=== PATIENT | male | born 1985 | race Hispanic/Latino ===

== ENCOUNTER 2020-03-21 15:20 | Inpatient (IN) | payer SELFPAY ==
[~2020-03-21 15:20] MED LIST: Dexamethasone 20 MG/5 ML VIAL ONE; Glycopyrrolate 0.2 MG/ML 5 ML SYRINGE ONE; Lidocaine 1% PF 5 ML VIAL ONE; Ondansetron PF 4 MG/2 ML Vial ONE; PHENYLEPHRINE-NS 100 MCG/ML 10 ML SYRINGE ONE; PROPOFOL 200 MG/20 ML VIAL ONE; Rocuronium Bromide 10 MG/ML (10ML VIAL) ONE; Vecuronium 10 MG VIAL ONE
--- NOTE | 2020-03-21 16:05 | RAD ---
Exam:3 views right hand HISTORY: Laceration to the fingers. Evaluate for foreign body. COMPARISON: None FINDINGS: Overlying bandage material limits evaluation of the third through fifth digit. No radiopaqu e foreign body. No fracture, cortical irregularity or periosteal reaction. Preserved joint spaces. IMPRESSION: 1. No fracture. 2. No radiopaque foreign body. Overlying bandage material limits interpretation.
[2020-03-21] MEDS ORDERED: Boostrix 0.5 ML (Tdap) VIAL ONE (16:55)
[2020-03-21] MEDS ORDERED: Morphine 4 MG/ML VIAL ONE ×2 (17:01→19:29)
[2020-03-21] MEDS ORDERED: Ondansetron PF 4 MG/2 ML Vial ONE (17:09)
[2020-03-21] MEDS ORDERED: CEFAZOLIN 1 GM VIAL ONE (17:09)
[2020-03-21] MEDS ORDERED: Gentamicin 80 MG/2 ML VIAL ONE (19:13)
[2020-03-21] MEDS ORDERED: Milk Of Magnesia 30 ML UDCUP PO PRN (19:34)
[2020-03-21] MEDS ORDERED: Ondansetron PF 4 MG/2 ML Vial IVP PRN (19:34)
[2020-03-21] MEDS ORDERED: Acetaminophen 325 MG TAB PO PRN (19:34)
[2020-03-21] MEDS ORDERED: Promethazine HCl 25 MG/ML VIAL IM PRN ×2 (19:34→23:23)
[2020-03-21] MEDS ORDERED: Morphine 4 MG/ML VIAL SLOW IVP PRN (19:34)
[2020-03-21] MEDS ORDERED: traMADol HCl 50 MG TAB PO PRN (19:34)
[2020-03-21] MEDS ORDERED: Bisacodyl 10 MG SUPP PR PRN (19:34)
[2020-03-21] MEDS ORDERED: Meperidine HCl/PF 25 MG/ML VIAL IM PRN (19:37)
[2020-03-21] MEDS ORDERED: TETANUS AND DIPHTHERIA TOX/PF 0.5 ML DISP.SYRIN IM SCH (19:45)
[2020-03-21] MEDS ORDERED: Communication Order-Pharmacy FS SCH (19:45)
[2020-03-21] MEDS ORDERED: Lidocaine 2% Jelly 5 ML TUBE ONE (20:24)
[2020-03-21] MEDS ORDERED: Fentanyl 100 MCG/2 ML VIAL ONE (20:24)
[2020-03-21] MEDS ORDERED: Midazolam HCl 2 mg/2 ml Vial ONE (20:24)
[2020-03-21] MEDS ORDERED: Lidocaine 2% PF 5 ML VIAL ONE (20:29)
[2020-03-21] MEDS ORDERED: Betamet Acet/Betamet Na Ph 30 MG/5 ML VIAL ONE (20:29)
[2020-03-21] MEDS ORDERED: Bacitracin Zinc Ointment 30 gm TUBE ONE (20:29)
[2020-03-21] MEDS ORDERED: Heparin 10,000 UNITS/ 10 ML VIAL ONE (20:29)
[2020-03-21] MEDS ORDERED: Hetastarch 6% 500 ML 0 ML ONE (20:29)
[2020-03-21] MEDS ORDERED: Bupivacaine PF 0.5% 30 ML VIAL ONE (20:29)
[2020-03-21 20:33] LABS: SARS-CoV-2 NAA Rapid Test Not Detected (NotDetected)
[2020-03-21] MEDS ORDERED: Sodium Chloride 0.9% 20 ML ONE (23:22)
[2020-03-21] MEDS ORDERED: Ondansetron HCl/PF 4 MG/2 ML Vial IVP PRN (23:23)
[2020-03-21] MEDS ORDERED: Promethazine HCl 25 MG/ML VIAL SLOW IVP PRN (23:23)
[2020-03-21] MEDS ORDERED: Meperidine HCl/PF 25 MG/ML VIAL SLOW IVP PRN (23:23)
[2020-03-22] MEDS ORDERED: Vecuronium 10 MG VIAL ONE (00:52)
[2020-03-22] MEDS ORDERED: Sodium Chloride 0.9% 0 ML ONE (00:55)
[2020-03-22] MEDS ORDERED: Sterile Water 10 ML ONE (00:56)
[2020-03-22] MEDS ORDERED: Fentanyl 100 MCG/2 ML VIAL ONE (02:18)
[2020-03-22] MEDS ORDERED: Ondansetron HCl/PF 4 MG/2 ML Vial IVP PRN (03:09)
[2020-03-22] MEDS ORDERED: Promethazine HCl 25 MG/ML VIAL SLOW IVP PRN (03:09)
[2020-03-22] MEDS ORDERED: Ketorolac Tromethamine 30 MG/ML VIAL IVP PRN (03:09)
[2020-03-22] MEDS ORDERED: Promethazine HCl 25 MG/ML VIAL IM PRN (03:09)
[2020-03-22] MEDS ORDERED: Meperidine HCl/PF 25 MG/ML VIAL SLOW IVP PRN ×2 (03:09)
[2020-03-22] MEDS ORDERED: HYDROmorphone 2 MG/ML VIAL SLOW IVP PRN (03:09)
[2020-03-22 04:45] VITALS: BMI 23.8
[2020-03-22] MEDS: Aspirin 81 mg Enteric Coated Tablet PO SCH ×3 (04:46→21:00)
[2020-03-22] MEDS: Sodium Chloride 0.9% 1,000 ML IV SCH ×3 (04:46→18:49)
[2020-03-22] MEDS: HYDROcodone/Acetaminophen 5/325 mg Tablet PO PRN ×3 (04:55→21:00)
[2020-03-22] MEDS ORDERED: Vancomycin 1 GM in Premix Bag 1 BAG IVPB SCH ×2 (05:45→18:00)
[2020-03-22 07:30] LABS: Anion Gap 12 mmol/L (10-20); BUN (Urea Nitrogen) 8 mg/dL (8.9-20.6); Calc. Creatinine Clearance 156 mL/min (70-130); Calcium 7.8 mg/dL (7.8-10.44); Carbon Dioxide 23 mmol/L (22-29); Chloride 102 mmol/L (98-107); Glucose 319 mg/dL (70-105); Potassium 3.8 mmol/L (3.5-5.1); Sodium 133 mmol/L (136-145)
[2020-03-23] MEDS: Sodium Chloride 0.9% 1,000 ML IV SCH (02:45)
[2020-03-23] MEDS: HYDROcodone/Acetaminophen 5/325 mg Tablet PO PRN (03:28)
[2020-03-23] MEDS ORDERED: Vancomycin 1 GM in Premix Bag 1 BAG IVPB SCH (06:00)
[2020-03-23] MEDS: Aspirin 81 mg Enteric Coated Tablet PO SCH (08:15)
[2020-03-23 11:36] VITALS: BP 124/80; TEMP 97.5
--- NOTE | 2020-03-23 14:31 | OP ---
DATE OF PROCEDURE: 03/21/2020 Surgery finished on 03/22/2020, beginning on 03/21/2020. PREOPERATIVE DIAGNOSES: 1. Right small finger palmar 4 cm laceration, in the hand just proximal A1 trena. 2. At the right ring finger: a. 3 cm palmar wound. b. Digital nerve contusion. c. Zone 2 flexor digitorum profundus laceration, partial. 3. At the right middle finger: a. 2.0 cm palmar wound. b. Digital nerve contusion. c. Flexor digitorum profundus zone 2 laceration. d. Flexor digitorum superficialis zone 2 laceration. 4. At the right index finger: a. 3.0 cm palmar laceration at the level of the just proximal to the palmar crease of the distal interphalangeal joint. b. Digital nerve contusion. c. Flexor digitorum profundus laceration zone 1. POSTOPERATIVE DIAGNOSES: 1. Right small finger palmar 4 cm laceration, in the hand just proximal A1 trena. 2. At the right ring finger: a. 3 cm palmar wound. b. Digital nerve contusion. c. Zone 2 flexor digitorum profundus laceration, partial. 3. At the right middle finger: a. 2.0 cm palmar wound. b. Digital nerve contusion. c. Flexor digitorum profundus zone 2 laceration. d. Flexor digitorum superficialis zone 2 laceration. 4. At the right index finger: a. 3.0 cm palmar laceration at the level of the just proximal to the palmar crease of the distal interphalangeal joint. b. Digital nerve contusion. c. Flexor digitorum profundus laceration zone 1. PROCEDURE PERFORMED: 1. At right small finger: a. Palmar wound debridement. b. Closure of palmar wound 4 cm. c. Microscopic digital nerve neuroplasty. 2. At right ring finger: a. Debridement of palmar wound, 3 cm. b. Closure of wound 3 cm. c. Microscopic digital nerve neuroplasty, radial and ulnar. d. Zone 2 flexor digitorum profundus laceration. 3. At the right middle finger: a. Wound debridement. b. Wound closure. c. Microscopic digital nerve neuroplasty. d. Flexor profundus repair zone 2. e. Flexor digitorum superficialis repair zone 2. 4. At the right index finger: a. Debridement of wound. b. Closure of wound 2 cm. c. Microscopic digital nerve neuroplasty. d. Flexor digitorum profundus laceration, zone 1 repair. TOURNIQUET TIME: 143 minutes initially with 35 minutes deflation and another 19 minutes elevation at 250 mmHg pressure. BLOOD LOSS: 200 mL. IMPLANTS: None. ANESTHESIA: General endotracheal anesthesia augmented with 30 mL of 0.5% Marcaine metacarpophalangeal block level. INDICATIONS FOR PROCEDURE: The patient was on his roof while it was raining carrying sheet metal in his hand without wearing gloves. He slipped and the contacted his small, index, long, and ring finger leaving him with the lacerations and the findings listed above. Operative intervention was indicated because of bleeding, open wounds, and the possibility of more permanent neurovascular damage requiring repair. DESCRIPTION OF PROCEDURE: After successful general LMA technique, the limb was prepped and draped. He had time-out done appropriately. We exsanguinated the limb, inflated tourniquet to 250 mmHg pressure. First, we extended all wounds, especially the palmar hand wound, at least 0.5 cm proximal, 1 cm distal. We did Pallavi incision at all digits. First, we then explored under loupe magnification, the small finger palmar hand wound, saw digital nerve and it was intact. Then, we debrided the fat and skin at the laceration using tenotomy scissors, [place] blade, 11 blade knife, and a curette. We also would irrigate this wound. There was excisional technique used and it was down to the level including the fascia. We then there was no need for digital nerve repair under microscopic evaluation here. Then, we turned our attention to the superficial 1 cm palmar DIPJ wound over the small finger, which we repaired with 4-0 nylon. As we did 4-0 nylon for the primary palmar wound on the ulnar hand. Next, the three individual fingers, ring finger, middle finger, and index finger had the wounds extended, then we dissected on loupe magnification neurovascular bundles to separate them from the underlying soft tissue for later microscopic evaluation. We then noticed that at each incision, there was slightly different damage to the tendons. First, at the ring finger, there was a zone 2 laceration where the FDS was spared and the FDP was lacerated approximately 60% from palmar dorsal without separation. We debrided the wound edges, as described above for the palm and then we repaired the flexor digitorum profundus partial laceration using multiple [id number] 4-0 Prolene sutures RB1 needle. Magnification in the microscope for this finger revealed no digital artery or nerve damage at the zone of injury. The rami were intact. We then turned our attention to the middle finger and here, the patient had a 2nd large wound almost 2.5 cm, so we extended it as well using Pallavi techniques distal and proximal, dissected down neurovascular bundle, did not see any neurovascular bundle lacerations except one of the arteries had been lacerated, but since the other was intact then I pursued repair. We then did a formal digital nerve neuroplasty x2 under microscope and found there was no cut or loss of continuity. At this point, this patient had zone 2 flexor digitorum profundus and superficialis lacerations and we decided to repair them for the unilateral ulnar only, flexor digitorum superficialis, a [id number] with 4-0 prolene with multiple loops. Gave excellent resolution of flexion of the digit. Then, for flexor digitorum profundus laceration, we passed the , and then held them touching each other using a combination of . Once we had done this, we were able to then use a limb technique with 4-0 grasping Supramid loop suture, one in each end of the tendon, brought into the middle for a six strand repair and then oversewed this. Once the grafts and sutures were in place with 6-0 Prolene, we then tied the knot for the grasping primary suture, the limb side technique, and then completed this repair with 6-0 Prolene, which had been run in the back wall first and then brought out palmarly and then sutured with excellent apposition of the frayed tendon ends. Finally, the patient had the microscope on the field. Digital nerve neuroplasty at the ring finger showed excellent neurovascular bundle, but not even a rami injury. We had a moist sponge placed here in the ring finger as we then approached the index finger. In index finger, a transverse laceration was extended in a Pallavi fashion, proximal by 0.5 cm, distal by 1 cm, as it was just 2 mm proximal to the volar DIP joint flexion crease. We carried through the skin and subcutaneous tissue, identified the ulnar neurovascular bundle easily and hematoma. The digital nerves were brought the microscope to the field this confirmed that. Under loupe magnification then identified the tendon stump which was approximately 1.1 mm long, placed a heavy suture inside and had to use the [employer] tendon passer to bring the flexor digitorum profundus back onto the field and into the trena system once again . There was no digital nerve laceration seen with this exploration of the index finger. Once the tendon was tied, using the limb side technique, we then were able to release the tourniquet and see excellent capillary refill. The patient left the operating room after we released the tourniquet, the last time after being up for 19 minutes, and then we obtained hemostasis. We closed all incisions and all the PIP joints and MP joints in appropriate flexion as listed above. Digital nerve neuroplasty under microscope and the last index finger did not prove to be abnormal whatsoever. Then, with the tourniquet deflated, hemostasis obtained. We closed all incisions with interrupted 4-0 nylon without abnormality. Job ID: [id number]
--- NOTE | 2020-03-27 12:14 | PQF ---
CLINICAL DOCUMENTATION CLARIFICATION FORM: Dear : Tam Tello MD Date / Time: 03/27/2020 Please exercise your independent, professional judgment in responding to the clarification form. Clinical indicators are provided on the bottom of this form for your review Please check appropriate box(es): [ ] Excisional Debridement: [ ] Excised [ ] Cut away [ ] Other: Depth / layer: (deepest layer of debridement): [ ] Skin [ ] Subcutaneous [ ] Fascia [ ] Muscle [ ] Tendon [ ] Bone Appearance of wound: (e.g., down to fresh bleeding tissue, etc.) Margins: (please specify): / x x Instruments used: [ ] Scissors [ ] Scalpel [ ] Other: [ ] Non-excisional Debridement: (Removal by ?ushing, brushing, chemical, or washing) Depth / layer: (deepest layer of debridement): [ ] Skin [ ] Subcutaneous [ ] Fascia [ ] Muscle [ ] Tendon [ ] Bone [ ] Incision and Drainage only (No Debridement): Depth: [ ] Skin [ ] Subcutaneous [ ] Fascia [ ] Muscle [ ] Tendon [ ] Bone [ ] Escharectomy [ ] Other procedure diagnosis (Please specify if any) [ ] Unable to determine Physician Signature: Date/Time: For continuity of documentation, please document condition throughout progress notes and discharge summary. Thank You. To be completed by CDI/Coding staff for physician review: Present Clinical Indicators - Signs / Symptoms / Labs Results and Location in Medical Record [x] We debrided that fat & skin at the laceration using tenotomy scissors [x] Cutting away of tissue (e.g., scissors, scalpel, etc.) [place] blade, 11 blade knife & a curette - OP note on 03/21 [x] There was excisional technique used & it was down to the level including the fascia OP note on 03/21 [x] We debrided the wound edge as described above for the plam & then we repaired the flexor digitorum profundus partial laceration. OP note on 03/21 Present Risk Factors Results and Location in Medical Record [ ] Bedridden/Immobile patient [x] Laceration of small,ring, middle, index fingers OP note on 03/21 [ ] [ ] Present Treatments Results and Location in Medical Record [ ] Surgical intervention [x] Laceration repair of small,ring, middle, index fingers OP note on 03/21 [ ] [ ] CDS/Hematology Nurse Signature: RENEA Phone #: Date/Time: 03/27/2020 This is a permanent part of the Medical Record [facility]
== END 2020-03-23 12:10 | disposition home or self-care (01) | DRG 580 ==
LOC: EDBD 15:20 → ERS 15:20 → SDC 20:00 → SURG B 20:01
PROVIDERS: ADMIT Orthopaedic Surgery Hand Surgery; ATTEND Orthopaedic Surgery Hand Surgery
PROC: 01Q60ZZ Repair Radial Nerve, Open Approach (ICD-10-PCS; principal; 2020-03-21)
PROC: 0JBJ0ZZ Excision of Right Hand Subcutaneous Tissue and Fascia, Open Approach (ICD-10-PCS; 2020-03-21)
PROC: 01Q40ZZ Repair Ulnar Nerve, Open Approach (ICD-10-PCS; 2020-03-21)
DX: S61.216A Laceration without foreign body of right little finger without damage to nail, initial encounter (principal); S65.512A Laceration of blood vessel of right middle finger, initial encounter; S61.214A Laceration without foreign body of right ring finger without damage to nail, initial encounter; S61.212A Laceration without foreign body of right middle finger without damage to nail, initial encounter; S61.210A Laceration without foreign body of right index finger without damage to nail, initial encounter; S64.494A Injury of digital nerve of right ring finger, initial encounter; S64.490A Injury of digital nerve of right index finger, initial encounter; S64.492A Injury of digital nerve of right middle finger, initial encounter; W01.0XXA Fall on same level from slipping, tripping and stumbling without subsequent striking against object, initial encounter; Z20.828 Contact with and (suspected) exposure to other viral communicable diseases
CPT/HCPCS: 36415; 80048; 90471; 90715; 96365; 96375; 96376; J0690; J0702; J1100; J1580; J1644; J2001; J2250; J2270; J2405; J2704; J3010; J3370; J3490; S0020; U0002